=== PATIENT | female | born 1990 | race Caucasian/White ===

== ENCOUNTER 2021-12-03 06:13 | Day surgery (SDC) | payer OTHER ==
[2021-11-27 11:43] VITALS: BMI 21.6
[2021-12-03] MEDS ORDERED: AFRIN NASAL MIST 15 ML BOT ONE ×2 (07:23→08:27)
[2021-12-03 07:28] LABS: BHCG - Serum Negative (NEGATIVE); Pregs Control Background? CLEAR/WHITE (CLR/WHITE); Pregs Control Bar Appear? YES (CONTROL BAR)
[2021-12-03] MEDS ORDERED: Midazolam HCl 2 mg/2 ml Vial ONE (07:55)
[2021-12-03] MEDS ORDERED: Bacitracin Zinc Ointment 30 gm TUBE ONE (08:27)
[2021-12-03] MEDS ORDERED: Xylocaine 1% w/ Epi 1:100K 10 ML VIAL ONE (08:27)
[2021-12-03] MEDS ORDERED: Fentanyl 250 MCG/5 ML VIAL ONE ×2 (08:33→09:34)
[2021-12-03] MEDS ORDERED: Rocuronium Bromide 10 MG/ML (10ML VIAL) ONE (08:34)
[2021-12-03] MEDS ORDERED: PROPOFOL 200 MG/20 ML VIAL ONE (08:34)
[2021-12-03] MEDS ORDERED: Glycopyrrolate 0.2 MG/ML 5 ML SYRINGE ONE (08:34)
[2021-12-03] MEDS ORDERED: Dexamethasone 20 MG/5 ML VIAL ONE (08:34)
[2021-12-03] MEDS ORDERED: Ondansetron PF 4 MG/2 ML Vial ONE (08:34)
[2021-12-03] MEDS ORDERED: Ondansetron ODT 4 MG TAB ONE (11:18)
== END 2021-12-03 11:20 | disposition home or self-care (01) ==
LOC: SDC 06:13
PROVIDERS: ATTEND Otolaryngology Plastic Surgery within the Head & Neck
PROC: 09TL0ZZ Resection of Nasal Turbinate, Open Approach (ICD-10-PCS; principal; 2021-12-03)
PROC: 09SM0ZZ Reposition Nasal Septum, Open Approach (ICD-10-PCS; principal; 2021-12-03)
DX: J34.2 Deviated nasal septum (principal); J34.3 Hypertrophy of nasal turbinates; J34.89 Other specified disorders of nose and nasal sinuses; J32.9 Chronic sinusitis, unspecified; Z86.16 Personal history of COVID-19
CPT/HCPCS: 84703; 85014; J1100; J2250; J2405; J2704; J3010; Q0162